=== PATIENT | male | born 1965 | race Caucasian/White ===

== ENCOUNTER 2019-10-17 09:07 | Day surgery (SDC) | payer OTHER ==
[~2019-10-17 09:07] MED LIST: CYCL10 PO; OXYACE7.5T PO; RXCYCL10 PO; RXOXYACE PO
--- NOTE | 2019-10-17 10:59 | NUR ---
FROM IMAGING TO STEP VSS REVIEWED ORDERS WITH PATIENT.
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
--- NOTE | 2019-10-17 12:25 | NUR ---
Discharge instructions reviewed with patient. Patient verbalizes understanding. Copy given to patient to take home. Discharged TO HOME
== END 2019-10-17 23:11 | disposition home or self-care (01) ==
LOC: RAD 09:07 → CT 11:00 → RAD 23:11
DX: M47.12 Other spondylosis with myelopathy, cervical region (principal); M47.22 Other spondylosis with radiculopathy, cervical region; E66.3 Overweight; M48.02 Spinal stenosis, cervical region; M50.23 Other cervical disc displacement, cervicothoracic region; M48.03 Spinal stenosis, cervicothoracic region; Z98.1 Arthrodesis status
CPT/HCPCS: 62305; 72126; 72129; Q9966

== ENCOUNTER 2020-06-18 07:12 | Day surgery (SDC) | payer OTHER ==
[~2020-06-18 07:12] MED LIST changes: +CHLO25B PO; +Loratadine10 MG PO; +NAPROXEN PO; +PRAZ2 PO; +SERT100 PO; +TRAZ50 PO; +Viagra100 MG PO
--- NOTE | 2020-06-18 08:40 | NUR ---
Discharge instructions reviewed with patient. Patient verbalizes understanding. Copy given to patient to take home. Patient up to Ambulate independently. Gait steady. DENIES ANY DIFFICULTY
== END 2020-06-18 22:58 | disposition home or self-care (01) ==
LOC: CT 07:12 → ORD 07:12 → CT 09:00 → ORD 22:58
DX: I25.10 Atherosclerotic heart disease of native coronary artery without angina pectoris (principal); K76.0 Fatty (change of) liver, not elsewhere classified; I10 Essential (primary) hypertension; F17.220 Nicotine dependence, chewing tobacco, uncomplicated; Z79.899 Other long term (current) drug therapy
CPT/HCPCS: 75574; Q9967

== ENCOUNTER 2020-11-26 11:22 | Emergency (ER) | payer OTHER ==
[~2020-11-26] VITALS: Ht 180.3 cm; Wt 117.9 kg
[2020-11-26] MEDS ORDERED: Norco 5-325 Ta1 EACH PO (16:21)
[2020-11-26] MEDS ORDERED: IBUP800 PO (16:21)
[2020-11-26] MEDS ORDERED: METPRE4DP PO (16:21)
[2020-11-26] MEDS ORDERED: Valium5 MG PO (16:21)
== END 2020-11-26 16:34 | disposition home or self-care (01) ==
LOC: ER 11:22
DX: M54.6 Pain in thoracic spine (principal); Z79.899 Other long term (current) drug therapy
CPT/HCPCS: 36415; 72146; 96374; 96375; 96376; 99283-25; J1170; J2405

== ENCOUNTER 2024-06-05 18:28 | Emergency (ER) | payer OTHER ==
[~2024-06-05] VITALS: Ht 180.3 cm; Wt 108.9 kg
[~2024-06-05 18:28] MED LIST changes: +IBUP800 PO; +METPRE4DP PO; +Norco 5-325 Ta1 EACH PO; +Valium5 MG PO
[2024-06-05 18:32] VITALS: BP 161/98
== END 2024-06-05 22:57 | disposition left against medical advice (07) ==
LOC: ER 18:28
DX: Z53.21 Procedure and treatment not carried out due to patient leaving prior to being seen by health care provider (principal)
CPT/HCPCS: 73080

== ENCOUNTER 2024-08-11 11:47 | Emergency (ER) | payer OTHER ==
[~2024-08-11] VITALS: Ht 180.3 cm; Wt 108.0 kg
[2024-08-11 14:15] VITALS: BP 156/91
== END 2024-08-11 14:32 | disposition home or self-care (01) ==
LOC: ER 11:47
DX: S09.90XA Unspecified injury of head, initial encounter (principal); S16.1XXA Strain of muscle, fascia and tendon at neck level, initial encounter; S39.012A Strain of muscle, fascia and tendon of lower back, initial encounter; W11.XXXA Fall on and from ladder, initial encounter; Z79.899 Other long term (current) drug therapy
CPT/HCPCS: 70450; 72100; 72125; 99284-25